=== PATIENT | female | born 1995 | race African-American/Black ===

== ENCOUNTER 2020-04-01 08:30 | Emergency (ER) | payer SELFPAY ==
[2020-04-01] MEDS ORDERED: KETOROLAC TROMETHAMINE 60 MG/2 ML SDV IM ONE (09:20)
--- NOTE | 2020-04-01 09:26 | ER Document Report ---
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 She denies any specific history but believes this is related to level of heavy exertion on her job. Pain is described as 5/10 intensity. Partial relief with ibuprofen. Similar episode about 6 months ago treated with a muscle relaxer and an anti- inflammatory successfully. Denies any bowel bladder symptoms. Denies any sensory or motor impairment. Takes no regular medications. No known allergies. No history of peptic ulcer disease or renal disease. She is a 1 pack/day smoker. Denies use of drugs or alcohol. No prior hospitalizations or surgery. Last menses 2 weeks ago described as normal. Currently does not have a primary care physician. Past Medical History - General Information source: Patient, [facility] Records - Social History Smoking Status: Current Every Day Smoker Frequency of alcohol use: None Drug Abuse: None Lives with: Family Family History: Reviewed & Not Pertinent Patient has homicidal ideation: No - Medical History Medical History: Negative Surgical Hx: Negative Review of Systems - Review of Systems Notes: Constitutional: Negative for fever. HENT: Negative for sore throat. Eyes: Negative for visual changes. Cardiovascular: Negative for chest pain. Respiratory: Negative for shortness of breath. Gastrointestinal: Negative for abdominal pain, vomiting or diarrhea. Genitourinary: Negative for dysuria. Musculoskeletal: As per HPI. Skin: Negative for rash. Neurological: Negative for headaches, weakness or numbness. 10 point ROS negative except as marked above and in HPI. Physical Exam - Vital signs Vitals: Temp Pulse Resp BP Pulse Ox 98.3 F 72 16 134/83 H 99 04/01/20 08:34 04/01/20 08:34 04/01/20 08:34 04/01/20 08:34 04/01/20 08:34 - Notes Notes: GENERAL: Well-developed well-nourished female approximately stated age appearing in no acute distress. SKIN: Good turgor no rashes. HEAD: Normocephalic atraumatic. EYES: PERRLA. EOMI. Conjunctivae and sclerae clear. EARS: CANALS AND TMS CLEAR. NOSE: CLEAR. MOUTH: Moist mucosa. Good dentition. No stridor or edema. No drooling. NECK: Supple. No masses or thyromegaly. No adenopathy. Carotids 2+ without bruits. No JVD. BACK: Symmetrical mild bilateral paraspinal muscular tenderness with palpable spasm lumbar area. Negative straight leg raising test. CHEST: Respirations unlabored. Breath sounds clear and symmetrical. HEART: Regular rhythm. No murmur gallop or rub. ABDOMEN: Soft nontender without masses, organomegaly or rebound. Bowel sounds normally active. No bruits. GENITALIA: Deferred. EXTREMITIES: Mild tenderness posterior aspect left shoulder. No restrictions of range of motion noted. No edema. No calf tenderness. Cap refill less than 1.5 seconds. Dorsalis pedis and posterior tibial pulses 3+ and symmetrical. NEUROLOGICAL: GCS 15. Alert and oriented x3. Normal gait. Fluent speech. Cranial nerves II through XII intact. Sensorimotor and cerebellar normal. Normal tone. PSYCHIATRIC: Appropriate affect. Course - Vital Signs Vital signs: Temp Pulse Resp BP Pulse Ox 98.3 F 72 16 134/83 H 99 04/01/20 08:34 04/01/20 08:34 04/01/20 08:34 04/01/20 08:34 04/01/20 08:34 Discharge - Discharge Clinical Impression: Acute lumbar strain, Acute muscular strain left shoulder Condition: Stable Disposition: HOME, SELF-CARE Instructions: Ice Packs ([facility]), Muscle Strain ([facility]), Low Back Pain ([facility]) Additional Instructions: Take prescribed medications as directed. You will be provided a work note for the next 3 days. See referral doctor if you are unimproved after 3 days of treatment. Return here as needed for new or worsening symptoms. Prescriptions: Cyclobenzaprine HCl [Flexeril 10 mg Tablet] 10 mg PO QHS PRN #15 tablet PRN Reason: Indomethacin 50 mg PO TID 10 Days #30 capsule Forms: Smoking Cessation Education Referrals: [facility] [Provider Group] - Follow up as needed
[2020-04-01 09:44] VITALS: BP 144/84
== END 2020-04-01 09:44 | disposition home or self-care (01) ==
LOC: ER 08:30
DX: S39.012A Strain of muscle, fascia and tendon of lower back, initial encounter (principal); S46.912A Strain of unspecified muscle, fascia and tendon at shoulder and upper arm level, left arm, initial encounter; X58.XXXA Exposure to other specified factors, initial encounter; F17.200 Nicotine dependence, unspecified, uncomplicated
CPT/HCPCS: 99284; 96372; J1885

== ENCOUNTER 2020-05-21 07:02 | Emergency (ER) | payer OTHER ==
[2020-05-21 07:10] VITALS: BP 141/78
--- NOTE | 2020-05-21 11:15 | ER Document Report ---
ED General - General Chief Complaint: Foreign Body in Eye Stated Complaint: EYE INJURY Time Seen by Provider: 05/21/20 11:14 - HPI Notes: 24-year-old female presents with foreign body sensation to left eye. Patient states that yesterday while at work, she was cutting metal, a small circular piece of metal accidentally flew behind her safety glasses and into her eye. She states that she immediately flushed out her eye at work. She did remove the piece of metal. However states that she still feels a foreign body sensation, her eye is very scratchy. She is a contact lens wearer, she did not pair contacts in today. She denies visual changes from the eye. - Related Data Allergies/Adverse Reactions: No Known Allergies Allergy (Verified 05/21/20 07:26) Past Medical History - Social History Smoking Status: Current Every Day Smoker Chew tobacco use (# tins/day): No Frequency of alcohol use: None Drug Abuse: None Family History: Reviewed & Not Pertinent Patient has homicidal ideation: No Review of Systems - Review of Systems Constitutional: No symptoms reported EENT: See HPI Cardiovascular: No symptoms reported Respiratory: No symptoms reported Gastrointestinal: No symptoms reported Genitourinary: No symptoms reported Female Genitourinary: No symptoms reported Musculoskeletal: No symptoms reported Skin: No symptoms reported Hematologic/Lymphatic: No symptoms reported Neurological/Psychological: No symptoms reported Physical Exam - Vital signs Vitals: Temp Pulse Resp BP Pulse Ox 97.3 F 84 16 141/78 H 99 05/21/20 07:09 05/21/20 07:09 05/21/20 07:09 05/21/20 07:09 05/21/20 07:09 - General General appearance: Appears well, Alert In distress: None - HEENT Head: Normocephalic, Atraumatic Conjunctiva: Icteric - Left Cornea: Corneal abrasion - Left. Linear horizontal nasal aspect, Other - Pain relieved by tetracaine. No: Embedded foreign body, Superficial foreign body Extraocular movements intact: Yes Pupils: PERRL - Respiratory Respiratory status: No respiratory distress - Cardiovascular Rhythm: Regular - Abdominal Inspection: Normal - Extremities General upper extremity: Normal ROM General lower extremity: Normal ROM - Neurological Neuro grossly intact: Yes - Psychological Associated symptoms: Normal affect - Skin Skin Temperature: Warm Course - Re-evaluation Re-evalutation: 24-year-old female with left eye pain. She had a small piece of metal and her eye yesterday while at work, she states she was able to flush out the piece of metal. However still continues to have foreign body sensation. Visual acuity is intact. Pupil is equal round and reactive. On exam she had left conjunctival injection. Tetracaine relieved her pain. There is a small linear corneal abrasion to the nasal aspect. No visualized foreign body. Eye was irrigated with copious saline which patient reports further improved her symptoms. Diagnosis discussed with patient. Advised to not wear contact lenses. Prescribed Polytrim. Encourage ophthalmology or optometry follow-up. Return precautions given, patient stable at time of discharge. - Vital Signs Vital signs: Temp Pulse Resp BP Pulse Ox 97.3 F 84 16 141/78 H 99 05/21/20 07:26 05/21/20 07:09 05/21/20 07:09 05/21/20 07:09 05/21/20 07:09 Discharge - Discharge Clinical Impression: Corneal abrasion, left Qualifiers: Encounter type: initial encounter Qualified Code(s): S05.02XA - Injury of conjunctiva and corneal abrasion without foreign body, left eye, initial encounter Disposition: HOME, SELF-CARE Instructions: Corneal Abrasion ([facility]) Additional Instructions: Use medicated eye drops as directed. Also may continue ibuprofen/Motrin. Please try to follow-up with an eye doctor or burn table operator peer return to the emergency department for any worsening pain, changes in vision, or eye discharge. Do not wear contact lenses until antibiotic drops are done. Prescriptions: Polymyxin B Sulf/Trimethoprim [Polytrim Eye Drops] 1 drop OS QID #1 bottle Forms: Parent Work Note, Return to Work
[2020-05-21] MEDS ORDERED: TETRACAINE HCL 0.5% OPH SOLN 4 ML OS ONE (11:16)
== END 2020-05-21 11:51 | disposition home or self-care (01) ==
LOC: ER 07:02
DX: S05.02XA Injury of conjunctiva and corneal abrasion without foreign body, left eye, initial encounter (principal); W20.8XXA Other cause of strike by thrown, projected or falling object, initial encounter; Y93.89 Activity, other specified; Y99.0 Civilian activity done for income or pay; F17.200 Nicotine dependence, unspecified, uncomplicated
CPT/HCPCS: 99283; J3490

== ENCOUNTER 2020-08-31 10:18 | Emergency (ER) | payer SELFPAY ==
--- NOTE | 2020-08-31 11:01 | ER Document Report ---
ED Medical Screen (RME) - General Stated Complaint: CHEST PAIN Time Seen by Provider: 08/31/20 10:55 - HPI Notes: Patient is a 25-year-old female with no medical history who presents with left- sided chest pain that began 3 days ago. Patient describes the pain as sharp and intermittent. She reports lightheadedness and shortness of breath but denies abdominal pain, vomiting, and fever. Patient denies tobacco and alcohol use. - Related Data Allergies/Adverse Reactions: No Known Allergies Allergy (Verified 08/31/20 10:56) Physical Exam - Vital signs Vitals: Temp Pulse Resp BP Pulse Ox 98.6 F 78 20 141/83 H 100 08/31/20 10:25 08/31/20 10:08/31/20 10:08/31/20 10:08/31/20 10:25 - Respiratory Respiratory status: No respiratory distress Breath sounds: Normal - Cardiovascular Rhythm: Regular Heart sounds: Normal auscultation Course - Re-evaluation Re-evalutation: I have greeted and performed a rapid initial assessment of this patient. A comprehensive ED assessment and evaluation of the patient, analysis of test results and completion of medical decision making process will be conducted by an additional ED providers. - Vital Signs Vital signs: Temp Pulse Resp BP Pulse Ox 98.6 F 78 20 141/83 H 100 08/31/20 10:25 08/31/20 10:25 08/31/20 10:08/31/20 10:08/31/20 10:25
[2020-08-31 11:21] LABS: ABSOLUTE EOSINOPHILS # (AUTO) 0.1 10^3/uL (0.0-0.6); ABSOLUTE LYMPHOCYTES (AUTO) 2.1 10^3/uL (0.5-4.7); ABSOLUTE MONOCYTES (AUTO) 0.3 10^3/uL (0.1-1.4); ABSOLUTE NEUT (AUTO) 3.9 10^3/uL (1.7-8.2); BASOPHILS % (AUTO) 0.7 % (0-2); EOSINOPHILS % (AUTO) 0.9 % (0-6); HEMATOCRIT 37.7 % (36.0-47.0); HEMOGLOBIN 12.5 g/dL (12.0-15.5); LYMPHOCYTES % (AUTO) 33.5 % (13-45); MEAN CORPUSCULAR HEMOGLOBIN 29.3 pg (27.0-33.4); MEAN CORPUSCULAR HGB CONC 33.1 g/dL (32.0-36.0); MEAN CORPUSCULAR VOLUME 88 fl (80-97); PLATELET COUNT 140 10^3/uL (150-450); RED BLOOD COUNT 4.27 10^6/uL (3.72-5.28); RED CELL DISTRIBUTION WIDTH 14.6 % (11.5-14.0); SEGMENTED NEUTROPHILS % (AUTO) 60.9 % (42-78); TOTAL CELLS COUNTED % (AUTO) 100 %; WHITE BLOOD COUNT 6.4 10^3/uL (4.0-10.5)
--- NOTE | 2020-08-31 11:30 | ER Document Report ---
ED Cardiac - General Chief Complaint: Chest Pain Stated Complaint: CHEST PAIN Time Seen by Provider: 08/31/20 10:55 Notes: CHIEF COMPLAINT: Left chest pain for 4 days HPI: 25-year-old female presenting with left chest pain for 4 days, intermittent in nature feels like a tightness across the anterior chest. Had this approximately a year ago states she had a work-up done that was negative, never followed back up with cardiology. Patient states that it does hurt to move slightly, increased tightness with deep breathing. She is not on oral control. No recent prolonged immobilization. No family history of clotting disorders ROS: See HPI - all other systems were reviewed and are otherwise negative Constitutional: no fever Eyes: no drainage, no blurred vision ENT: no runny nose, no sore throat Cardiovascular: + chest pain Resp: no SOB, no cough GI: no vomiting, no diarrhea, no abdominal pain : no dysuria Integumentary: no rash Allergy: no hives Musculoskeletal: no extremity pain or swelling Neurological: no numbness/tingling, no weakness MEDICATIONS: I agree with the patient medications as charted by the RN. ALLERGIES: I agree with the allergies as charted by the RN. PAST MEDICAL HISTORY/PAST SURGICAL HISTORY: Reviewed and agree as charted by RN. SOCIAL HISTORY: Reviewed and agree as charted by RN. FAMILY HISTORY: No significant familial comorbid conditions directly related to patient complaint EXAM: Reviewed vital signs as charted by RN. CONSTITUTIONAL: Alert and oriented and responds appropriately to questions. Well-appearing; well-nourished HEAD: Normocephalic; atraumatic EYES: PERRL; Conjunctivae clear, sclerae non-icteric ENT: normal nose; no rhinorrhea; moist mucous membranes; pharynx without lesions noted, no uvula edema or deviation, no tonsillar hypertrophy, phonation normal NECK: Supple without meningismus; non-tender; no cervical lymphadenopathy, no masses CARD: RRR; no murmurs, no clicks, no rubs, no gallops; symmetric distal pulses RESP: Normal chest excursion without splinting or tachypnea; breath sounds clear and equal bilaterally; no wheezes, no rhonchi, no rales, pulse oximetry 99% on room air not hypoxic. Mild tenderness of the left upper chest wall on palpation ABD/GI: Normal bowel sounds; non-distended; soft, non-tender, no rebound, no guarding; no palpable organomegaly or masses. BACK: The back appears normal and is non-tender to palpation, there is no CVA tenderness EXT: Normal ROM in all joints; non-tender to palpation; no cyanosis, no effusions, no edema SKIN: Normal color for age and race; warm; dry; good turgor; no acute lesions noted NEURO: Moves all extremities equally; Motor and sensory function intact PSYCH: The patient's mood and manner are appropriate. Grooming and personal hygiene are appropriate. MDM: 25-year-old female who is otherwise healthy and very low risk for ACS or PE presenting for evaluation of left chest discomfort for 3 days. It is slightly reproducible. EKG normal sinus rhythm with a ventricular rate of 78 [place] 136 QT 352 QTC 401 with a QRS of 55. Normal EKG. No other ectopy. Interpreted by emergency department physicians. Initial screening labs ordered via triage process. PERC negative. The patient was evaluated during the global COVID-19 pandemic and that diagnosis was suspected/considered upon their initial presentation. Their evaluation, treatment and testing was consistent with current guidelines for patients who present with complaints or symptoms that may be related to COVID-19 - Related Data Allergies/Adverse Reactions: No Known Allergies Allergy (Verified 08/31/20 11:36) Past Medical History - Social History Smoking Status: Never Smoker Chew tobacco use (# tins/day): No Frequency of alcohol use: None Drug Abuse: None Family History: Reviewed & Not Pertinent Physical Exam - Vital signs Vitals: Temp Pulse Resp BP Pulse Ox 98.6 F 78 20 141/83 H 100 08/31/20 10:08/31/20 10:08/31/20 10:08/31/20 10:08/31/20 10:25 Course - Re-evaluation Re-evalutation: 08/31/20 12:16 Lab work, EKG and chest x-ray do not show acute findings. Patient heart score is 0. Patient likely has inflammatory chest wall discomfort. [facility] for management and evaluation - Vital Signs Vital signs: Temp Pulse Resp BP Pulse Ox 98.6 F 78 20 141/83 H 100 08/31/20 10:25 08/31/20 10:25 08/31/20 10:25 08/31/20 10:25 08/31/20 10:25 - Laboratory Results Result Diagrams: 08/31/20 11:08 08/31/20 11:08 Laboratory Results Interpreted: 08/31/20 08/31/20 11:08 11:08 RDW 14.6 H Plt Count 140 L Glucose 112 H Critical Laboratory Results Reviewed: No Critical Results - Radiology Results Critical Radiology Results Reviewed: No Critical Results Discharge - Discharge Clinical Impression: Chest pain Qualifiers: Chest pain type: other chest pain Qualified Code(s): R07.89 - Other chest pain; R07.8 - Other chest pain Condition: Stable Disposition: HOME, SELF-CARE Additional Instructions: Take the Voltaren for the chest discomfort. Your lab work and imaging studies today did not show acute findings. Follow-up with cardiology for further evaluation and treatment call for appointment Prescriptions: Diclofenac Sodium [Voltaren 50 Mg Tablet.] 50 mg PO BID #20 tablet. Referrals: PARVIZ TOLBERT MD [ACTIVE PROVISIONAL STAFF] - Follow up as needed
[2020-08-31 11:53] LABS: ALBUMIN 4.6 g/dL (3.5-5.0); ALKALINE PHOSPHATASE 84 U/L (38-126); ANION GAP 6 (5-19); ASPARTATE AMINO TRANSFERASE 21 U/L (14-36); BILIRUBIN,DIRECT 0.2 mg/dL (0.0-0.4); BILIRUBIN,TOTAL 0.3 mg/dL (0.2-1.3); BLOOD UREA NITROGEN 12 mg/dL (7-20); CALCIUM 9.9 mg/dL (8.4-10.2); CARBON DIOXIDE 29 mmol/L (22-30); CHLORIDE 103 mmol/L (98-107); GLUCOSE 112 mg/dL (75-110); POTASSIUM 4.4 mmol/L (3.6-5.0); TOTAL PROTEIN 7.8 g/dL (6.3-8.2)
--- NOTE | 2020-08-31 12:02 | RADIOLOGY REPORT (SQ) ---
EXAM DESCRIPTION: CHEST SINGLE VIEW IMAGES COMPLETED DATE/TIME: 08/31/2020 11:55 am REASON FOR STUDY: chest pain COMPARISON: None. EXAM PARAMETERS: NUMBER OF VIEWS: One view. TECHNIQUE: An AP view of the chest was obtained. RADIATION DOSE: NA LIMITATIONS: None. FINDINGS: LUNGS AND PLEURA: No consolidation, pleural effusion or pneumothorax. MEDIASTINUM AND HILAR STRUCTURES: No mediastinal or hilar contour abnormality. HEART AND VASCULAR STRUCTURES: The cardiac silhouette and pulmonary vasculature are within normal cardoza its. BONES: No acute findings. HARDWARE: None in the chest. OTHER: No other finding. IMPRESSION: No acute cardiopulmonary process. TECHNICAL DOCUMENTATION: JOB ID: [id number] [employer]- All Rights Reserved Reading location - IP/workstation name: [email or web address]
[2020-08-31] MEDS ORDERED: KETOROLAC TROMETHAMINE 60 MG/2 ML SDV IM ONE (12:16)
[2020-08-31 13:03] VITALS: BP 132/67
--- NOTE | 2020-08-31 16:55 | EKG REPORT ---
SEVERITY:- NORMAL ECG - SINUS RHYTHM : Confirmed by: Saji Lerner MD 31-Aug-2020 16:54:51
== END 2020-08-31 13:00 | disposition home or self-care (01) ==
LOC: ER 10:18
DX: R07.89 Other chest pain (principal)
CPT/HCPCS: 93005; 99285; 96372; 36415; 85025; 80053; 84484; 71045; 93010; J1885